=== PATIENT | male | born 1955 | race Caucasian/White ===

== ENCOUNTER 2017-02-11 17:05 | Emergency (ER) | payer SELFPAY ==
[2017-02-11] MEDS ORDERED: Sodium Chloride 0.9% 10 ML Syringe FLUSH PRN (17:07)
[2017-02-11] MEDS ORDERED: Sodium Chloride 0.9% 2.5 ML Syringe FLUSH PRN (17:07)
[2017-02-11] MEDS ORDERED: niCARdipine/Normal Saline 20 MG in Premix Bag 1 BAG IV SCH (17:15)
[2017-02-11 17:37] VITALS: BP 178/114
--- NOTE | 2017-02-11 17:53 | EDM.PDOC ---
[id number] 4d STROKE Time Seen by Provider: 02/11/17 17:15 Source of Information: Reports: EMS History Limitations: Reports: No limitations - History of Present Illness INITIAL COMMENTS - FREE TEXT/NARRATIVE: History of present illness: []patient arrives by EMS and stroke code. He was found down in the community by bystanders and police were called to evaluate him. They found that he was unable to speak or move his right side therefore they called an ambulance. He was incontinent, nonverbal, hypertensive, looking left andnot moving his right side on arrival. Review of systems: As per history of present illness and below otherwise all systems reviewed and negative. Past medical history: As per history of present illness and as reviewed below otherwise noncontributory. Surgical history: As per history of present illness and as reviewed below otherwise noncontributory. Social history: No reported history of drug or alcohol abuse. Family history: As per history of present illness and as reviewed below otherwise noncontributory. Physical exam:Limited patientdiffuse and not following commands. General: Well developed, well nourished in NAD HEENT: Atraumatic, normocephalic, pupils reactive, negative for conjunctival pallor or scleral icterus, mucous membranes moist, throat clear, neck supple, nontender, trachea midline. Lungs: Clear to auscultation, breath sounds equal bilaterally, chest nontender. Heart: S1S2, regular, negative for clicks, rubs, or JVD. Abdomen: Soft, nondistended, nontender. Negative for masses or hepatosplenomegaly. Negative for costovertebral tenderness. Pelvis: Stable nontender. Genitourinary: Deferred. Rectal: Deferred. Extremities: Atraumatic, negative for cords or calf pain. Neurovascular unremarkable. Neuro: Awake, Cranial nerves II through XII unremarkable. . Motor and sensory unremarkable throughout. Exam nonfocal. 1753 reassessed the patient he is able to follow commands now and is more alert , able to answer questions and speak a few words. Diagnostics: []CT shows 4.4 centimeter hemorrhagic stroke in the left basal ganglia with minimal midline shift, an EKG shows normal sinus rhythm, glucose was 120, sodium 131 alcohol levels in the 130s otherwise labs are normal Therapeutics: []the nicardipine drip was started for blood pressure was 243/121 titrated to systolic blood pressure 160. 1 g of Keppra was given IV. Impression: []hemorrhagic stroke Plan: []transfer by air to [facility]. Sami José accepts Definitive disposition and diagnosis as appropriate pending reevaluation and review of above. - Related Data Allergies/ADRs: Allergies Allergy/AdvReac Type Severity Reaction Status Date / Time No Known Allergies Allergy Verified 02/11/17 17:27 Home Meds: Home Meds . [No Known Home Meds] 06/22/16 [History] Past Medical History - Past Health History Medical/Surgical History: Denies Medical/Surgical History Endocrine/Metabolic History: Reports: Diabetes, type II Other Endocrine/Metabolic History: EMS reports patient has diabetes - Infectious Disease History Infectious Disease History: Reports: Chicken pox Social & Family History - Family History Family Medical History: Noncontributory - Tobacco Use Smoking Status *Q: Unknown Ever Smoked Tobacco Use Comment: Unknown Second Hand Smoke Exposure: No - Caffeine Use Caffeine Use: Reports: Other Other Caffeine Use: unknown - Alcohol Use Days Per Week of Alcohol Use: 3 Number of Drinks Per Day: 4 Total Drinks Per Week: 12 - Recreational Drug Use Recreational Drug Use: No ED ROS GENERAL - Review of Systems Review Of Systems: Unable To Obtain ED EXAM, NEURO - Physical Exam Exam: See Below (see history of present illness) Course - Vital Signs Last Recorded V/S: Last Vital Signs Temp 35.6 C 02/11/17 17:06 Pulse 80 02/11/17 17:33 Resp 20 02/11/17 17:33 BP 178/114 H 02/11/17 17:33 Pulse Ox 97 02/11/17 17:33 - Orders/Labs/Meds Orders: Active Orders 24 hr Category Date Time Status Assess Neurological Status [RC] ASDIRECTED Care 02/11/17 17:07 Active Bedrest [RC] ASDIRECTED Care 02/11/17 17:07 Active Blood Glucose Check, Bedside [RC] STAT Care 02/11/17 17:07 Active Cardiac Monitoring [RC] . DIRECTED Care 02/11/17 17:07 Active EKG Documentation Completion [RC] STAT Care 02/11/17 17:07 Active EKG Documentation Completion [RC] STAT Care 02/11/17 17:11 Active Height and Weight [RC] UPON Care 02/11/17 17:07 Active Initiate Acute Stroke Protocol [RC] STAT Care 02/11/17 17:07 Active NIH Stroke Scale [RC] ASDIRECTED Care 02/11/17 17:07 Active Nursing Bedside Swallow Screen [RC] ASDIRECTED Care 02/11/17 17:07 Active Oxygen Therapy [RC] ASDIRECTED Care 02/11/17 17:07 Active Stroke Education, General [RC] Click To Edit Care 02/11/17 17:07 Active Vital Signs [RC] Q15M Care 02/11/17 17:07 Active Head wo Cont [CT] Stat Exams 02/11/17 17:07 Taken Sodium Chloride 0.9% [Saline Flush] Med 02/11/17 17:07 Active 10 ml FLUSH ASDIRECTED PRN Sodium Chloride 0.9% [Saline Flush] Med 02/11/17 17:07 Active 2.5 ml FLUSH ASDIRECTED PRN niCARdipine/Normal Saline [Cardene 20 MG in NS 200 ML] Med 02/11/17 17:15 Active 20 mg Premix Bag 1 bag IV TITRATE Peripheral IV Insertion Adult [OM.PC] Stat Oth 02/11/17 17:07 Ordered Peripheral IV Insertion Adult [OM.PC] Stat Oth 02/11/17 17:07 Ordered Medication Orders Nicardipine HCl 20 mg/ Premix 200 mls @ 5 mls/hr IV TITRATE CARLY Last Infusion: 02/11/17 17:50 Dose: 25 mls/hr Admin: 02/11/17 17:24 Dose: 50 mls/hr Sodium Chloride (Saline Flush) 10 ml FLUSH ASDIRECTED PRN PRN Reason: Keep Vein Open Sodium Chloride (Saline Flush) 2.5 ml FLUSH ASDIRECTED PRN PRN Reason: Keep Vein Open Labs: Laboratory Tests 02/11/17 02/11/17 02/11/17 Range/Units 17:11 17:24 17:24 WBC 6.08 (4.0-11.0) K/uL RBC 4.56 (4.50-5.90) M/uL Hgb 14.8 (13.0-17.0) g/dL Hct 42.3 (38.0-50.0) % MCV 92.8 (80.0-98.0) fL MCH 32.5 H (27.0-32.0) pg MCHC 35.0 (31.0-37.0) g/dL RDW Std Deviation 44.5 (28.0-62.0) fl RDW Coeff of Jam 13 (11.0-15.0) % Plt Count 171 (150-400) K/uL MPV 9.00 (7.40-12.00) fL Add Manual Diff YES Neutrophils % (Manual) 53 (48.0-80.0) % Band Neutrophils % 3 % Lymphocytes % (Manual) 37 (16.0-40.0) % Monocytes % (Manual) 7 (0.0-15.0) % Nucleated RBC % 0.0 /100WBC Absolute Seg Neuts 3.2 Band Neutrophils # 0.2 Lymphocytes # (Manual) 2.2 Monocytes # (Manual) 0.4 Nucleated RBCs # 0 K/uL INR 1.04 (0.86-1.11) APTT 28.7 (18.6-31.3) SEC Sodium (136-146) mmol/L Potassium (3.5-5.1) mmol/L Chloride (98-110) mmol/L Carbon Dioxide (21-31) mmol/L BUN (6.0-23.0) mg/dL Creatinine (0.6-1.5) mg/dL Est Cr Clr Drug Dosing mL/min Estimated GFR (MDRD) ml/min Glucose (60-110) mg/dL POC Glucose 117 H (60-110) mg/dL Calcium (8.8-10.8) mg/dL Total Bilirubin (0.1-1.5) mg/dL AST (5-40) IU/L ALT (8-54) IU/L Alkaline Phosphatase (40-150) Troponin I (0.0-0.29) NG/ML Total Protein (6.0-8.0) g/dL Albumin (3.4-4.8) g/dL Globulin (2.0-3.5) g/dL Albumin/Globulin Ratio (1.3-2.8) TSH 3rd Generation (0.47-5.0) uIU/mL Urine Color Urine Appearance Urine pH (5.0-8.0) Ur Specific Jacobson (1.001-1.035) Urine Protein (NEGATIVE) mg/dL Urine Glucose (UA) (NEGATIVE) mg/dL Urine Ketones (NEGATIVE) mg/dL Urine Occult Blood (NEGATIVE) Urine Nitrite (NEGATIVE) Urine Bilirubin (NEGATIVE) Urine Urobilinogen (<2.0) EU/dL Ur Leukocyte Esterase (NEGATIVE) Urine RBC (0-2/HPF) Urine WBC (0-5/HPF) Ur Epithelial Cells (NONE-FEW) Amorphous Sediment (NEGATIVE) Urine Bacteria (NEGATIVE) Ethyl Alcohol mg/dL 02/11/17 02/11/17 02/11/17 Range/Units 17:24 17:24 17:24 WBC (4.0-11.0) K/uL RBC (4.50-5.90) M/uL Hgb (13.0-17.0) g/dL Hct (38.0-50.0) % MCV (80.0-98.0) fL MCH (27.0-32.0) pg MCHC (31.0-37.0) g/dL RDW Std Deviation (28.0-62.0) fl RDW Coeff of Jam (11.0-15.0) % Plt Count (150-400) K/uL MPV (7.40-12.00) fL Add Manual Diff Neutrophils % (Manual) (48.0-80.0) % Band Neutrophils % % Lymphocytes % (Manual) (16.0-40.0) % Monocytes % (Manual) (0.0-15.0) % Nucleated RBC % /100WBC Absolute Seg Neuts Band Neutrophils # Lymphocytes # (Manual) Monocytes # (Manual) Nucleated RBCs # K/uL INR (0.86-1.11) APTT (18.6-31.3) SEC Sodium 131 L (136-146) mmol/L Potassium 3.6 (3.5-5.1) mmol/L Chloride 97 L (98-110) mmol/L Carbon Dioxide 13 L (21-31) mmol/L BUN 8 (6.0-23.0) mg/dL Creatinine 0.8 (0.6-1.5) mg/dL Est Cr Clr Drug Dosing 94.51 mL/min Estimated GFR (MDRD) > 60.0 ml/min Glucose 145 H (60-110) mg/dL POC Glucose (60-110) mg/dL Calcium 8.5 L (8.8-10.8) mg/dL Total Bilirubin 0.5 (0.1-1.5) mg/dL AST 57 H (5-40) IU/L ALT 74 H (8-54) IU/L Alkaline Phosphatase 58 (40-150) Troponin I < 0.10 (0.0-0.29) NG/ML Total Protein 7.8 (6.0-8.0) g/dL Albumin 4.1 (3.4-4.8) g/dL Globulin 3.7 H (2.0-3.5) g/dL Albumin/Globulin Ratio 1.1 L (1.3-2.8) TSH 3rd Generation 1.50 (0.47-5.0) uIU/mL Urine Color Urine Appearance Urine pH (5.0-8.0) Ur Specific Jacobson (1.001-1.035) Urine Protein (NEGATIVE) mg/dL Urine Glucose (UA) (NEGATIVE) mg/dL Urine Ketones (NEGATIVE) mg/dL Urine Occult Blood (NEGATIVE) Urine Nitrite (NEGATIVE) Urine Bilirubin (NEGATIVE) Urine Urobilinogen (<2.0) EU/dL Ur Leukocyte Esterase (NEGATIVE) Urine RBC (0-2/HPF) Urine WBC (0-5/HPF) Ur Epithelial Cells (NONE-FEW) Amorphous Sediment (NEGATIVE) Urine Bacteria (NEGATIVE) Ethyl Alcohol 136.2 mg/dL 02/11/17 Range/Units 18:06 WBC (4.0-11.0) K/uL RBC (4.50-5.90) M/uL Hgb (13.0-17.0) g/dL Hct (38.0-50.0) % MCV (80.0-98.0) fL MCH (27.0-32.0) pg MCHC (31.0-37.0) g/dL RDW Std Deviation (28.0-62.0) fl RDW Coeff of Jam (11.0-15.0) % Plt Count (150-400) K/uL MPV (7.40-12.00) fL Add Manual Diff Neutrophils % (Manual) (48.0-80.0) % Band Neutrophils % % Lymphocytes % (Manual) (16.0-40.0) % Monocytes % (Manual) (0.0-15.0) % Nucleated RBC % /100WBC Absolute Seg Neuts Band Neutrophils # Lymphocytes # (Manual) Monocytes # (Manual) Nucleated RBCs # K/uL INR (0.86-1.11) APTT (18.6-31.3) SEC Sodium (136-146) mmol/L Potassium (3.5-5.1) mmol/L Chloride (98-110) mmol/L Carbon Dioxide (21-31) mmol/L BUN (6.0-23.0) mg/dL Creatinine (0.6-1.5) mg/dL Est Cr Clr Drug Dosing mL/min Estimated GFR (MDRD) ml/min Glucose (60-110) mg/dL POC Glucose (60-110) mg/dL Calcium (8.8-10.8) mg/dL Total Bilirubin (0.1-1.5) mg/dL AST (5-40) IU/L ALT (8-54) IU/L Alkaline Phosphatase (40-150) Troponin I (0.0-0.29) NG/ML Total Protein (6.0-8.0) g/dL Albumin (3.4-4.8) g/dL Globulin (2.0-3.5) g/dL Albumin/Globulin Ratio (1.3-2.8) TSH 3rd Generation (0.47-5.0) uIU/mL Urine Color YELLOW Urine Appearance CLEAR Urine pH 5.5 (5.0-8.0) Ur Specific Jacobson <= 1.005 (1.001-1.035) Urine Protein TRACE (NEGATIVE) mg/dL Urine Glucose (UA) NEGATIVE (NEGATIVE) mg/dL Urine Ketones NEGATIVE (NEGATIVE) mg/dL Urine Occult Blood SMALL H (NEGATIVE) Urine Nitrite NEGATIVE (NEGATIVE) Urine Bilirubin NEGATIVE (NEGATIVE) Urine Urobilinogen 0.2 (<2.0) EU/dL Ur Leukocyte Esterase NEGATIVE (NEGATIVE) Urine RBC 0-2 (0-2/HPF) Urine WBC 0-1 (0-5/HPF) Ur Epithelial Cells RARE (NONE-FEW) Amorphous Sediment LIGHT (NEGATIVE) Urine Bacteria RARE (NEGATIVE) Ethyl Alcohol mg/dL Meds: Medications Generic Name Dose Route Start Last Admin Trade Name Freq PRN Reason Stop Dose Admin Nicardipine HCl 20 mg/ Premix 200 mls @ 5 mls/hr 02/11/17 17:15 02/11/17 17: 50 IV 25 mls/hr TITRATE CARLY Infusion Sodium Chloride 10 ml 04/17/17 17:07 Saline Flush FLUSH ASDIRECTED PRN Keep Vein Open Sodium Chloride 2.5 ml 02/11/17 17:07 Saline Flush FLUSH ASDIRECTED PRN Keep Vein Open Discontinued Medications Generic Name Dose Route Start Last Admin Trade Name Freq PRN Reason Stop Dose Admin Levetiracetam 1,000 mg/ 110 mls @ 440 mls/hr 02/11/17 17:54 Dextrose/Water IV 02/11/17 18:08 Q12H ONE Departure - Departure Time of Disposition: 18:22 Disposition: DC/Tfer to Acute Hospital 02 Condition: fair Clinical Impression: Hemorrhagic stroke Referrals: PCP,None [Primary Care Provider] - Forms: ED Department Discharge - My Orders Last 24 Hours: My Active Orders 02/11/17 17:07 Assess Neurological Status [RC] ASDIRECTED Bedrest [RC] ASDIRECTED Blood Glucose Check, Bedside [RC] STAT Cardiac Monitoring [RC] . DIRECTED EKG Documentation Completion [RC] STAT Height and Weight [RC] UPON Initiate Acute Stroke Protocol [RC] STAT NIH Stroke Scale [RC] ASDIRECTED Nursing Bedside Swallow Screen [RC] ASDIRECTED Oxygen Therapy [RC] ASDIRECTED Stroke Education, General [RC] Click To Edit Vital Signs [RC] Q15M Head wo Cont [CT] Stat Sodium Chloride 0.9% [Saline Flush] 10 ml FLUSH ASDIRECTED PRN Sodium Chloride 0.9% [Saline Flush] 2.5 ml FLUSH ASDIRECTED PRN Peripheral IV Insertion Adult [OM.PC] Stat Peripheral IV Insertion Adult [OM.PC] Stat 02/11/17 17:11 EKG Documentation Completion [RC] STAT 02/11/17 17:15 niCARdipine/Normal Saline [Cardene 20 MG in NS 200 ML] 20 mg Premix Bag 1 bag IV TITRATE - Assessment/Plan Last 24 Hours: My Active Orders 02/11/17 17:07 Assess Neurological Status [RC] ASDIRECTED Bedrest [RC] ASDIRECTED Blood Glucose Check, Bedside [RC] STAT Cardiac Monitoring [RC] . DIRECTED EKG Documentation Completion [RC] STAT Height and Weight [RC] UPON Initiate Acute Stroke Protocol [RC] STAT NIH Stroke Scale [RC] ASDIRECTED Nursing Bedside Swallow Screen [RC] ASDIRECTED Oxygen Therapy [RC] ASDIRECTED Stroke Education, General [RC] Click To Edit Vital Signs [RC] Q15M Head wo Cont [CT] Stat Sodium Chloride 0.9% [Saline Flush] 10 ml FLUSH ASDIRECTED PRN Sodium Chloride 0.9% [Saline Flush] 2.5 ml FLUSH ASDIRECTED PRN Peripheral IV Insertion Adult [OM.PC] Stat Peripheral IV Insertion Adult [OM.PC] Stat 02/11/17 17:11 EKG Documentation Completion [RC] STAT 02/11/17 17:15 niCARdipine/Normal Saline [Cardene 20 MG in NS 200 ML] 20 mg Premix Bag 1 bag IV TITRATE
[2017-02-11 17:54] LABS: CHLORIDE,CL 97 mmol/L (98-110); SODIUM,NA 131 mmol/L (136-146)
--- NOTE | 2017-02-12 10:54 | CT ---
EXAM DATE: 02/11/17 PATIENT'S AGE: 61 Patient: RENETTA NÚÑEZ Facility: [place], [place] Site . Site : [id number] Study: CT Head STROKE PROTOCOL [id number]/17/2017 5:22:56 PM Ordering Physician: Doctor Hurst Final Report: INDICATION: stroke code CT HEAD WITHOUT CONTRAST TECHNIQUE: Multiple axial CT images were performed through the head without intravenous contrast administration. COMPARISON: No previous studies are currently available for comparison. FINDINGS: The exam is mildly limited by motion. There is an acute intraparenchymal hematoma within the left basal ganglia measuring approximately 4.4 x 2.6 x 3.4 centimeters. This hematoma produces mild localized mass effect with mild compression of the left lateral ventricle and minimal [id number] midline shift of 2-3 millimeters. There is very mild diffuse age-related brain atrophy. Ventricular size and configuration are within normal limits for the patient`s age. Muir-white differentiation is within normal limits. 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 There is chronic encephalomalacia involving the right temporal lobe consistent with an old infarct. No fractures are evident. Included portions of the paranasal sinuses and mastoid air cells are normally aerated. IMPRESSION: 1. 4.4 x 2.6 x 3.4 centimeter intraparenchymal hematoma in the left basal ganglia with associated mild mass effect and minimal [id number] midline shift. 2. 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 Chronic right temporal lobe infarct is noted. Results were called to Dr. Stephany Jama at 5:28 p.m. on 02/11/2017. REGGIE HULL MD [employer] Dictated by Olivier Hull MD @ 02/11/2017 5:34:15 PM Dictated by: Olivier Hull MD @ 02/11/2017 17:37:05 (Electronic Signature) Report Signed by Proxy and Original Signed Document filed in the Medical Record. [facility]
== END 2017-02-11 19:06 ==
LOC: MW.ED 17:05
DX: I61.9 Nontraumatic intracerebral hemorrhage, unspecified (principal); E11.9 Type 2 diabetes mellitus without complications
CPT/HCPCS: 36415; 70450; 80053; 81001; 82962; 84443; 84484; 85025; 85610; 85730; 93005; 96365; 96368; 99285; G0480; J1953; J7060